=== PATIENT | male | born 1990 | race Caucasian/White ===

== ENCOUNTER 2018-04-16 19:36 | Emergency (ER) | payer OTHER ==
[~2018-04-16] VITALS: Ht 188 cm; Wt 83.3 kg
[2018-04-16 21:39] VITALS: BP 120/64
== END 2018-04-16 21:39 | disposition home or self-care (01) ==
LOC: EME 19:36
DX: S00.551A Superficial foreign body of lip, initial encounter (principal); W45.8XXA Other foreign body or object entering through skin, initial encounter; Y93.19 Activity, other involving water and watercraft
CPT/HCPCS: 80048; 84484; 85027; 99281; 99284